=== PATIENT | female | born 1965 | race Caucasian/White ===

== ENCOUNTER 2019-10-29 09:40 | Emergency (ER) | payer SELFPAY ==
[2019-10-29 10:00] VITALS: BP 132/86; PULSE 67; RESP 32; TEMP 37; O2SAT 100
[2019-10-29 10:12] VITALS: BP 130/87; PULSE 67; O2SAT 100; BMI 17.5
--- NOTE | 2019-10-29 10:50 | DI.RAD.S_ITS ---
PROCEDURE: XR CHEST 1V INDICATIONS: s/p radiation for breast/ lymphatic cancer chest numbness TECHNIQUE: One view of the chest was acquired. COMPARISON: None. FINDINGS: Surgical changes and devices: An apparent left mastectomy change. Lungs and pleura: There is a small left-sided pleural effusion. No right-sided pleural effusion. No pneumothorax. No focal infiltrates are seen. Mediastinum: The cardiac contours are within normal limits. The aorta demonstrates calcification and tortuosity. Bones and chest wall: No suspicious bony lesions. Mild dextroconvex scoliotic curvature is seen. Age-appropriate bony degenerative changes are seen. Overlying soft tissues appear unremarkable. IMPRESSION: Small left-sided pleural effusion. Given the history, this may be related to postradiation change. Dictated by: Alonso Lee M.D. on 10/29/2019 at 10:37 Approved by: Alonso Lee M.D. on 10/29/2019 at 10:39
--- NOTE | 2019-10-29 11:08 | PC.NURSE ---
pt states she has been on an oral chemo drug since february in which she does not know the name. intermittently has reactions when the pharmaceutical brand is changed. states she had lip swelling and bleeding, constipation after taking this new brand, describes it as toxicity more than allergic reaction. IV in place. no breathing issues, normal vitals and refusing medications
[2019-10-29 11:15] LABS: Add Manual Diff / Slide Review NO; Basophils Absolute Auto 0 /uL (0-100); Eosinophils Absolute Auto 100 /uL (0-450); Eosinophils Percent Auto 2.3 % (2-4); Hematocrit 30.6 % (36-46); Hemoglobin 10.6 g/dL (12.0-16.0); Lymphocytes Absolute Auto 400 /uL (1100-4500); Mean Corpuscular HGB Conc 34.7 % (30-36); Mean Corpuscular Hemoglobin 32.4 PG (26-34); Mean Corpuscular Volume 93.4 fL (80-100); Monocytes Absolute Auto 400 /uL (0-900); Monocytes Percent Auto 11.2 % (3-14); Neutrophils Absolute Auto 2700 /uL (1500-7000); Neutrophils Percent Auto 74.5 % (50-75); Platelet Count 286 X10^3/uL (150-400); Red Blood Cell Count 3.28 X10^6/uL (4.0-5.2); White Blood Cell Count 3.6 X10^3/uL (4.5-11.0)
[2019-10-29 11:27] LABS: Erythrocyte Sedimentation Rate 70 MM/HR (0-20)
[2019-10-29 11:28] LABS: Alanine Aminotransferase 20 IU/L (<35); Albumin 3.7 g/dL (3.5-5.0); Albumin Globulin Ratio 1.2 (1.0-2.8); Alkaline Phosphatase 119 U/L (38-126); Aspartate Aminotransferase 48 IU/L (14-36); BUN Creatinine Ratio 16.2 (6-22); Bilirubin Total 0.4 mg/dL (0.2-1.3); Blood Urea Nitrogen 12 mg/dL (7-17); C-Reactive Protein Quant 0.7 mg/dL (<1.0); Calcium 9.4 mg/dL (8.4-10.2); Carbon Dioxide 26 mmol/L (22-32); Chloride 105 mmol/L (98-107); Creatine Kinase 79 U/L (30-135); Estimated Glomerular Filt Rate > 60.0 mL/min (>60); Globulin 3.1 g/dL (1.7-4.1); Glucose 92 mg/dL (70-100); HEMOLYSIS 24 (0-50); Potassium 3.3 mmol/L (3.4-5.1); Sodium 137 mmol/L (137-145); Total Protein 6.8 g/dL (6.3-8.2)
--- NOTE | 2019-10-29 11:43 | ED_ITS ---
HPI - Allergic Reaction General Chief complaint: Allergic Reaction Stated complaint: cancer medication reaction Time Seen by Provider: 10/29/19 10:26 Source: patient Mode of arrival: Family Vehicle Limitations: no limitations History of Present Illness HPI narrative: HPI: The patient is a 54-year-old female who states that she was initially told that she had breast cancer which is now at [facility]. The patient is visiting or here from [place] and does not have a local oncologist. The patient has received radiation to her left breast by a Dr. Robert. The patient has been on hydrocodone with acetaminophen for pain and discomfort which she discontinued as well as her Decadron. The patient is supposed to be on anastrozole however she had a reaction to it in which her lips arm started to swell breakdown and she became very pale was unable to urinate or have a bowel movement. On October 24 she took a different brand of anastrozole a buys itis and was not getting any better. The patient states that she thought that she was having a toxic allergic affect to this medication. The patient is a vague historian. She states that she has had decreased sensation in her left chest where she has been receiving radiation as well as swelling of her left arm. She has had abnormal feelings in her left arm. I believe the patient has been having a in neuropathy and lymph edema of her left arm secondary to her radiation therapy. The patient has no local physician. The patient denies a history of asthma COPD myocardial infarction stroke seizure hypertension diabetes mellitus. She does not smoke cigarettes drink alcohol or use marijuana or any drugs. The patient has been denying any fever chills sweats headache numbness tingling paresthesias anesthesia or paresis other than that mentioned over her left chest. She has had no loss of vision scotomata diplopia nasal drainage sinus congestion sore throat or dysphagia. The patient complains of a lump in her right axilla and in her left breast. She denies any chest pain palpitations cough or shortness of breath. She states that she was dizzy while she was on theanastozole. The patient has had no significant rash other than the slight erythema of her right upper arm. No hives. She denies any other abdominal pain nausea vomiting diarrhea or any urinary symptoms. Related Data Allergies Allergy/AdvReac Type Severity Reaction Status Date / Time erythromycin base Allergy Severe Redness of Verified 10/29/19 10:22 [From E-Mycin] Skin sulfamethoxazole Allergy Severe Anaphylaxis Verified 10/29/19 10:22 [From Bactrim] tetracycline Allergy Severe Blister Verified 10/29/19 10:22 trimethoprim [From Bactrim] Allergy Severe Anaphylaxis Verified 10/29/19 10:22 acetaminophen [From Tylenol] Allergy Unknown Verified 10/29/19 10:22 Penicillins Allergy Unknown Verified 10/29/19 10:20 Review of Systems Review of Systems Narrative: Her review of systems were all negative except for those mentioned in the history of present illness. Patient History Social History Smoking Status: Never smoker Smoking Status: Never smoker alcohol intake frequency: 0-2 drinks per day Substance Use Type: does not use Exam Narrative Exam Narrative: PHYSICAL EXAM: CONSTITUTIONAL: Awake, Alert, Oriented, Coherent, Cooperative in NAD. Does not appear toxic or ill. Appears frail chronically ill and pale HEAD: AT/NC EENT: PERRL, FROM of eyes, no discharge, no nystagmus MOUTH:Oral mucosa is moist and pink, posterior pharynx is without erythema or exudate. The patient has dry lips with it is healing sores over her lips NECK: Supple, no obvious JVD, Trachea is midline without stridor, no palpable LN. SPINE: Palpationof the cervical, Thoracic, Lumbar or Sacral spine reveals no gross deformity or tenderness. No CVA tenderness. THORAX: No deformity, retractions, chest wall tenderness. The patient has scarring of the left upper anterior chest wall secondary to the radiation therapy. Her lateral left breast is scarred and retracted. Over the central portion of her left breast she has a 0.5 cm to 1 cm nodule arm that is firm and nontender. The patient has a smaller nodule in her right axilla. LUNGS: Clear, symmetrical breath sounds without respiratory distress. HEART: Normal heart tones, regular rhythm and rate without murmur. ABDOMEN: Soft, non-tender, normal bowel sounds without guarding, rebound, rigidity or palpable mass. LYMPHATIC: no palpable spleen. EXTREMITIES: No edema, deformity, tenderness or cyanosis. SKIN: Pale without bruising or petechia. The patient has a small area of erythema over her medial upper left arm NEURO: Awake, alert, oriented, conversive, cranial nerves II-XII are symmetrical , moves all 4 extremities and is ambulatory. Initial Vital Signs Initial Vital Signs: Vital Signs Temperature 98.6 F 10/29/19 10:00 Pulse Rate 67 10/29/19 10:00 Respiratory Rate 32 H 10/29/19 10:00 Blood Pressure 132/86 10/29/19 10:00 Pulse Oximetry 100 10/29/19 10:00 Course Course Course Narrative: 1145: Patient's chest x-ray revealed no acute pathology other than a small left pleural effusion which probably secondary to her radiation therapy. She has changes consistent with radiation therapy. The rest of her laboratory tests were negative. I believe the patient has numbness and tingling in her left anterior chest secondary to a neuropathy secondary to her radiation therapy. I think she also has mild lymphedema of her left arm causing her swelling and discomfort. It is difficult to determine what type of adverse reaction she had to the Anastrozole which will be recommended to discontinue anterior she can be seen by an oncologist and re-evaluated. She will be discharged home and she will be given the name of the local oncologist Dr. Camejo to follow-up with. Orders Ordered: Discontinued Medications Methylprednisolone (Solu-Medrol 125 Mg Vial) 125 mg IV NOW ONE Stop: 10/29/19 10:48 Last Admin: 10/29/19 11:09 Dose: Not Given Documented by: ELHAM Potassium Chloride (Potassium Chloride) 40 meq PO NOW ONE Stop: 10/29/19 11:56 Last Admin: 10/29/19 12:15 Dose: 40 meq Documented by: ELHAM Vital Signs Vital signs: Vital Signs - 8 hr 10/29/19 10:00 10/29/19 10:12 Temperature 98.6 F Pulse Rate 67 67 Respiratory Rate 32 H Blood Pressure 130/87 Blood Pressure [Right Arm] 132/86 Pulse Oximetry 100 100 MDM - Allergic Reaction Medical Records Attestation: I reviewed the patient's medical records. Lab Data Attestation: I reviewed the patient's lab results. Result diagrams: 10/29/19 11:05 10/29/19 11:05 Labs: Lab Results 10/29/19 10/29/19 Range/Units 11:05 11:05 WBC 3.6 L (4.5-11.0) X10^3/uL RBC 3.28 L (4.0-5.2) X10^6/uL Hgb 10.6 L (12.0-16.0) g/dL Hct 30.6 L (36-46) % MCV 93.4 (80-100) fL MCH 32.4 (26-34) PG MCHC 34.7 (30-36) % RDW 13.0 (11.6-14.8) % Plt Count 286 (150-400) X10^3/uL Neut % (Auto) 74.5 (50-75) % Lymph % (Auto) 11.0 L (25-40) % [place] % (Auto) 11.2 (3-14) % Eos % (Auto) 2.3 (2-4) % Baso % (Auto) 1.0 (0-2) % Neut # (Auto) 2700 (4152-3846) /uL Lymph # (Auto) 400 L (1180-9041) /uL [place] # (Auto) 400 (0-900) /uL Eos # (Auto) 100 (0-450) /uL Baso # (Auto) 0 (0-100) /uL ESR 70 H (0-20) MM/HR Sodium 137 (137-145) mmol/L Potassium 3.3 L (3.4-5.1) mmol/L Chloride 105 (98-107) mmol/L Carbon Dioxide 26 (22-32) mmol/L BUN 12 (7-17) mg/dL Creatinine 0.74 (0.52-1.04) mg/dL Estimated GFR > 60.0 (>60) mL/min BUN/Creatinine Ratio 16.2 (6-22) Glucose 92 (70-100) mg/dL Calcium 9.4 (8.4-10.2) mg/dL Total Bilirubin 0.4 (0.2-1.3) mg/dL AST 48 H (14-36) IU/L ALT 20 (<35) IU/L Alkaline Phosphatase 119 (38-126) U/L Total Creatine Kinase 79 (30-135) U/L C-Reactive Protein 0.7 (<1.0) mg/dL Total Protein 6.8 (6.3-8.2) g/dL Albumin 3.7 (3.5-5.0) g/dL Globulin 3.1 (1.7-4.1) g/dL Albumin/Globulin Ratio 1.2 (1.0-2.8) ECG Data Attestation: I personally reviewed and interpreted this ECG as follows: Interpretation: The patient's EKG obtained on October 28 at 11:14 a.m.: We 14 reveals a sinus bradycardia with a ventricular rate of 56 normal intervals QTC is 424 milliseconds axis is normal. The patient has T-wave inversions in V1 the patient's EKG otherwise is normal without any acute diagnostic ST segment changes. Discharge Plan Departure Patient Disposition: Home Clinical Impression: Lymphedema of arm, Neuropathy, Hypokalemia, Pleural effusion Adverse drug reaction Qualifiers: Encounter type: initial encounter Qualified Code(s): T50.905A - Adverse effect of unspecified drugs, medicaments and biological substances, initial encounter Discharge Date/Time: 10/29/19 12:17 Instructions: DI for Hypokalemia, DI for Lymphedema, DI for Adverse Drug Reaction -- Allergic, DI for Peripheral Neuropathy Activity Restrictions/Additional Instructions: 1. Stop the anastozole. 2. Follow-up with your primary care physician. 3. Follow-up with your radiation oncologist. 4. If you do not have a local oncologist's you can try following up and make an appointment to be seen by Dr. Camejo. 5.For pain and discomfort you can take 3, 200 mg ibuprofen for any pain and discomfort. For any itching burning rash you can take Benadryl 25 mg orally every 6 hours. 6 If you develop worsening shortness of breath, persistent cough, chest pain that is continuous and last longer than 15-20 minutes unrelieved by any medications, developed racing of your heart with palpitations associated with dizziness and feeling faint you can return to the emergency department to be re-evaluated or proceed to the nearest emergency department where ever you are Referrals: Senait Camejo MD [Physician] -
[2019-10-29 12:05] VITALS: BP 138/76; PULSE 48; RESP 16; O2SAT 100
[2019-10-29] MEDS: POTASSIUM CHLORIDE 20 MEQ/15 ML UDC 40 MEQ PO (12:15)
== END 2019-10-29 12:17 | disposition home or self-care (01) ==
PROVIDERS: Emergency Provider Emergency Medicine
DX: I89.0 Lymphedema, not elsewhere classified (principal); E87.6 Hypokalemia; G62.9 Polyneuropathy, unspecified; J90 Pleural effusion, not elsewhere classified; T50.905A Adverse effect of unspecified drugs, medicaments and biological substances, initial encounter
CPT/HCPCS: 36415; 71045; 80053; 82550; 85025; 85651; 86140; 93005; 99284